=== PATIENT | female | born 1960 | race Caucasian/White ===

== ENCOUNTER → 2016-03-14 | Outpatient (CLI) | payer OTHER ==
[~2016-03-14] MED LIST: LORTAB 5/500 501 TAB PO; MULTIPLE VITAMI1 CAP PO; NO HOME MEDICATIONS
== END ==
LOC: MC.RAD 10:35
DX: Z12.31 Encounter for screening mammogram for malignant neoplasm of breast (principal)

== ENCOUNTER → 2017-05-24 | Outpatient (CLI) | payer OTHER | LOC: MC.RAD 09:00 | DX: Z12.31 Encounter for screening mammogram for malignant neoplasm of breast (principal) ==

== ENCOUNTER → 2018-05-27 | Outpatient (CLI) | payer OTHER | LOC: MC.RAD 09:12 | DX: Z12.31 Encounter for screening mammogram for malignant neoplasm of breast (principal); Z98.890 Other specified postprocedural states ==

== ENCOUNTER → 2020-01-06 | Outpatient (CLI) | payer OTHER | LOC: MC.RAD 08:30 | DX: Z12.31 Encounter for screening mammogram for malignant neoplasm of breast (principal); R92.0 Mammographic microcalcification found on diagnostic imaging of breast; Z98.890 Other specified postprocedural states ==

== ENCOUNTER → 2020-01-15 | Outpatient (CLI) | payer OTHER | LOC: MC.RAD 09:46 | DX: N64.1 Fat necrosis of breast (principal); Z98.890 Other specified postprocedural states ==

== ENCOUNTER → 2020-10-05 | Outpatient (CLI) | payer OTHER ==
--- NOTE | 2020-09-30 09:51 | NUR ---
CALLED AND LMOM WITH INSTRUCTIONS AND CALL BACK NUMBER.
[~2020-10-05] VITALS: Ht 162.7 cm; Wt 72.5 kg
[~2020-10-05] MED LIST changes: +ANTIDEPRESSANT; +DIOVAN 40MG40 MG PO; +FLEXERIL 1010 MG/TAB PO; +ZOFRAN 4MG T4 MG/TAB PO
[2020-10-05 06:22] VITALS: BP 145/70; PULSE 74; TEMP 97.5
[2020-10-05 06:24] VITALS: BP 145/70; PULSE 74; TEMP 97.5
[2020-10-05 07:19] VITALS: BP 168/92; PULSE 76
[2020-10-05 07:20] VITALS: BP 171/104; PULSE 78
[2020-10-05 07:21] VITALS: BP 159/105; PULSE 73
[2020-10-05 07:22] VITALS: BP 146/93; PULSE 74
== END ==
LOC: COL.CARD 05:26
DX: R07.89 Other chest pain (principal)
CPT/HCPCS: A9500; J2785

== ENCOUNTER → 2020-10-11 | Outpatient (CLI) | payer OTHER | LOC: COL.RAD 12:49 | DX: R20.2 Paresthesia of skin (principal) | CPT/HCPCS: A9585 ==

== ENCOUNTER → 2020-10-13 | Outpatient (CLI) | payer OTHER | LOC: COL.VAS 13:09 | DX: I34.0 Nonrheumatic mitral (valve) insufficiency (principal); I10 Essential (primary) hypertension ==

== ENCOUNTER 2020-12-01 12:02 | Emergency (ER) | payer OTHER ==
[~2020-12-01] VITALS: Ht 160 cm; Wt 68.2 kg
[~2020-12-01 12:02] MED LIST changes: -FLEXERIL 1010 MG/TAB PO; -ZOFRAN 4MG T4 MG/TAB PO
[2020-12-01 12:38] VITALS: TEMP 97.3
[2020-12-01] MEDS ORDERED: ZOFRAN 4MG T4 MG/TAB PO (14:03)
[2020-12-01] MEDS ORDERED: FLEXERIL 1010 MG/TAB PO (14:03)
[2020-12-01 14:44] VITALS: BP 168/98; PULSE 78
== END 2020-12-01 14:44 | disposition home or self-care (01) ==
LOC: COL.ER 12:02
DX: S40.011A Contusion of right shoulder, initial encounter (principal); S70.02XA Contusion of left hip, initial encounter; S70.12XA Contusion of left thigh, initial encounter; S86.012A Strain of left Achilles tendon, initial encounter; I10 Essential (primary) hypertension; M54.2 Cervicalgia; Z79.899 Other long term (current) drug therapy; V89.2XXA Person injured in unspecified motor-vehicle accident, traffic, initial encounter
CPT/HCPCS: J1885